=== PATIENT | female | born 1950 | race Caucasian/White ===

== ENCOUNTER 2015-11-23 15:48 | Inpatient (IN) | payer MEDICARE, BC ==
[~2015-11-23] VITALS: Ht 166.4 cm; Wt 67.1 kg
[~2015-11-23 15:48] MED LIST: AMBIEN 10MG10 MG; ASPIRIN 32325 MG/TAB PO; BENEFIBER PO; CELEBREX 200MG200 MG PO; CENTRUM SILVER1 CTB PO; CEPHALEXIN500 M1 PO; CITRACAL + D CA1 TAB; DESYREL 50MG50 MG PO; DITROPAN 5MG TAB5 MG PO; FERROUS SULFATE65 MG PO; FOLIC ACID 11 MG/TA1 PO; FOLIC ACID 40400 MCG PO; GLUCOSAMINE & C1 CA1 PO; IRON325 M1 PO; IRON65 M1 PO; MAG-OX 400400 MG/TAB PO; MIRALAX PA17 GM/Dose PO; MULTI VITAMINS1 TAB PO; NATURE'S BLE1000 MCG PO; NORCO 325 MG-7.1 TAB PO; OXYCONTIN 20MG20 MG; PERCOCET 325 MG1 TA2; SYNTHROID0.05 MG/TA PO; SYNTHROID0.075 MG/T PO; TOPROL XL 50MG50 MG PO; ULTRAM 50MG TAB50 MG PO; VITAMIN C500 MG PO; VITAMIN D 1001000 IU PO; XARELTO10 MG PO
[2016-01-07] MEDS ORDERED: KLOR-CON SPRIN10 MEQ PO (13:45)
[2016-01-09] MEDS ORDERED: CEPHALEXIN500 M1 PO ×2 (13:24→20:32)
[2016-01-09] MEDS ORDERED: DESYREL 50MG50 MG PO (19:43)
[2016-01-09] MEDS ORDERED: SYNTHROID0.075 MG/T PO (19:44)
[2016-01-16] MEDS ORDERED: LANOXIN 0.120.125 MG PO (12:38)
[2016-01-16] MEDS ORDERED: FLORINEF ACETA0.1 MG PO (12:39)
[2016-01-16] MEDS ORDERED: TYLENOL 500MG500 MG PO (12:41)
[2016-03-14] MEDS ORDERED: FERROUS SULFATE65 MG PO (11:21)
[2016-03-14] MEDS ORDERED: FOLIC ACID 40400 MCG PO (11:22)
[2016-03-14] MEDS ORDERED: VITAMIN C500 MG PO (11:22)
[2016-03-14] MEDS ORDERED: MULTI VITAMINS1 TAB PO (11:23)
[2016-03-15] VITALS (12 sets, daily range): BP systolic 91–132; BP diastolic 56–83; PULSE 68–84; TEMP 97.3–98.2
[2016-03-16 05:13] VITALS: BP 107/65; PULSE 74; TEMP 98.2
[2016-03-16] MEDS ORDERED: XARELTO10 MG PO (06:22)
[2016-03-16] MEDS ORDERED: NORCO 325 MG-7.1 TAB PO (06:22)
[2016-03-16] MEDS ORDERED: ULTRAM 50MG TAB50 MG PO (06:23)
[2016-03-16 06:31] LABS: HEMATOCRIT 29.8 % (37.0-47.0); HEMOGLOBIN 9.7 g/dl (12.5-16.0)
[2016-03-16 07:44] VITALS: BP 117/50; PULSE 71; TEMP 96.9
[2016-09-22] MEDS ORDERED: ADIPEX-P37.5 MG PO (10:37)
== END 2016-03-16 11:45 | disposition home or self-care (01) | DRG 483 ==
LOC: JCC 01-05 13:00
PROVIDERS: Orthopaedic Surgery
PROC: 0RPJ0JZ Removal of Synthetic Substitute from Right Shoulder Joint, Open Approach (ICD-10-PCS; 2016-03-15)
PROC: 0RRJ00Z Replacement of Right Shoulder Joint with Reverse Ball and Socket Synthetic Substitute, Open Approach (ICD-10-PCS; principal; 2016-03-15 13:45)
DX: T84.84XA Pain due to internal orthopedic prosthetic devices, implants and grafts, initial encounter (principal); M19.011 Primary osteoarthritis, right shoulder; M75.121 Complete rotator cuff tear or rupture of right shoulder, not specified as traumatic; Z87.891 Personal history of nicotine dependence; Z96.611 Presence of right artificial shoulder joint
CPT/HCPCS: A4315; A9284; C1713; C1776; J0690; J1720; J1885; J2250; J2370; J2405; J2550; J2704; J3010; J7050; J7120

== ENCOUNTER → 2016-03-31 | Outpatient (CLI) | payer MEDICARE, BC ==
[~2016-03-31] VITALS: Ht 166.4 cm; Wt 69.4 kg
[~2016-03-31] MED LIST changes: +ADIPEX-P37.5 MG PO; +ASPI325T6 PO; +FLORINEF ACETA0.1 MG PO; +IRON 65MG PO; +KLOR-CON SPRIN10 MEQ PO; +LANOXIN 0.120.125 MG PO; +PHENERGAN 25 TA25 MG PO; +TYLENOL 500MG500 MG PO
[2016-03-31 10:24] VITALS: BP 105/69; PULSE 75
[2016-03-31 10:48] VITALS: BP 105/69; PULSE 75
[2016-04-18 11:45] VITALS: BP 120/86; PULSE 101
[2016-06-27 12:35] VITALS: BP 132/95; PULSE 90
== END ==
LOC: LIGHT 10:20
DX: E03.9 Hypothyroidism, unspecified (principal); I10 Essential (primary) hypertension; Z68.25 Body mass index [BMI] 25.0-25.9, adult; E66.3 Overweight; G47.33 Obstructive sleep apnea (adult) (pediatric)

== ENCOUNTER 2016-05-18 09:11 | Outpatient (RCR) | payer MEDICARE, BC ==
[~2016-05-18 09:11] MED LIST changes: -ADIPEX-P37.5 MG PO; -ASPI325T6 PO; -IRON 65MG PO; -PHENERGAN 25 TA25 MG PO
[2016-05-31] MEDS ORDERED: ASPI325T6 PO (06:16)
[2016-05-31] MEDS ORDERED: NORCO 325 MG-7.1 TAB PO (06:17)
[2016-09-22] MEDS ORDERED: ADIPEX-P37.5 MG PO (10:37)
== END 2016-06-17 10:26 | disposition home or self-care (01) ==
LOC: WSPT 09:11
DX: Z47.89 Encounter for other orthopedic aftercare (principal)
CPT/HCPCS: G8978-GP; G8979-GP; G8980-GP

== ENCOUNTER 2016-05-24 13:46 | Inpatient (IN) | payer MEDICARE, BC ==
[~2016-05-24] VITALS: Ht 166.4 cm; Wt 69.9 kg
[2016-05-30] VITALS (9 sets, daily range): BP systolic 110–134; BP diastolic 64–87; PULSE 65–73; TEMP 97–98.2
[2016-05-31 00:20] VITALS: BP 101/70; PULSE 71; TEMP 97.8
[2016-05-31 04:25] VITALS: BP 110/69; PULSE 78; TEMP 98
[2016-05-31] MEDS ORDERED: ASPI325T6 PO (06:16)
[2016-05-31] MEDS ORDERED: NORCO 325 MG-7.1 TAB PO (06:17)
[2016-05-31 07:30] VITALS: BP 105/69; PULSE 76; TEMP 98.8
[2016-05-31 08:48] LABS: HEMOGLOBIN 10.6 g/dl (12.5-16.0)
[2016-05-31 08:49] LABS: HEMATOCRIT 33.1 % (37.0-47.0)
[2016-05-31 11:39] VITALS: BP 121/59; PULSE 72; TEMP 98
[2016-09-22] MEDS ORDERED: ADIPEX-P37.5 MG PO (10:37)
== END 2016-05-31 12:50 | disposition home or self-care (01) | DRG 483 ==
LOC: JCC 05-30 07:30
PROVIDERS: Orthopaedic Surgery; Physician Assistant
PROC: 0RRK00Z Replacement of Left Shoulder Joint with Reverse Ball and Socket Synthetic Substitute, Open Approach (ICD-10-PCS; principal; 2016-05-30 13:30)
DX: M19.012 Primary osteoarthritis, left shoulder (principal)
CPT/HCPCS: A4315; A9284; C1713; C1776; J0690; J1100; J1720; J1885; J2250; J2405; J2704; J3010; J7120

== ENCOUNTER → 2016-06-30 | Outpatient (CLI) | payer MEDICARE, BC ==
[~2016-06-30] VITALS: Ht 166.4 cm; Wt 69.9 kg
[~2016-06-30] MED LIST changes: +ADIPEX-P37.5 MG PO; +ASPI325T6 PO; +IRON 65MG PO; +PHENERGAN 25 TA25 MG PO
[2016-06-30 13:43] VITALS: BP 134/93; PULSE 96
[2016-07-25 09:03] VITALS: BP 112/68; PULSE 86
== END ==
LOC: LIGHT 10:00
DX: E03.9 Hypothyroidism, unspecified (principal); I10 Essential (primary) hypertension; E66.9 Obesity, unspecified; Z68.26 Body mass index [BMI] 26.0-26.9, adult; G47.33 Obstructive sleep apnea (adult) (pediatric)

== ENCOUNTER → 2016-09-22 | Outpatient (CLI) | payer MEDICARE, BC ==
[~2016-09-22] VITALS: Ht 166.4 cm; Wt 71.9 kg
[2016-09-22 09:01] VITALS: BP 132/88; PULSE 81
== END ==
LOC: LIGHT 09:00
DX: E03.9 Hypothyroidism, unspecified (principal); I10 Essential (primary) hypertension; E66.9 Obesity, unspecified; Z68.26 Body mass index [BMI] 26.0-26.9, adult; Z71.3 Dietary counseling and surveillance; G47.33 Obstructive sleep apnea (adult) (pediatric)

== ENCOUNTER → 2016-10-27 | Outpatient (CLI) | payer MEDICARE, BC ==
[~2016-10-27] VITALS: Ht 166.4 cm; Wt 72.1 kg
[2016-10-27 14:16] VITALS: BP 130/70; PULSE 72
== END ==
LOC: LIGHT 10:38
DX: E66.9 Obesity, unspecified (principal); E03.9 Hypothyroidism, unspecified; I10 Essential (primary) hypertension; Z68.26 Body mass index [BMI] 26.0-26.9, adult; Z98.84 Bariatric surgery status; Z90.3 Acquired absence of stomach [part of]; Z96.653 Presence of artificial knee joint, bilateral; Z96.641 Presence of right artificial hip joint; Z96.611 Presence of right artificial shoulder joint

== ENCOUNTER 2016-10-31 11:28 | Day surgery (SDC) | payer MEDICARE, BC ==
[~2016-10-31] VITALS: Ht 165.1 cm; Wt 70.9 kg
[~2016-10-31 11:28] MED LIST changes: -IRON 65MG PO; -PHENERGAN 25 TA25 MG PO
[2016-10-31 12:37] VITALS: BP 119/79; PULSE 73; TEMP 97.4
[2016-10-31] MEDS ORDERED: ULTRAM 50MG TAB50 MG PO (12:41)
[2016-10-31] MEDS ORDERED: IRON 65MG PO (12:49)
[2016-10-31] MEDS ORDERED: TYLENOL 500MG500 MG PO (12:52)
[2016-10-31 15:15] VITALS: BP 132/83; PULSE 70; TEMP 97.3
[2016-10-31 15:30] VITALS: BP 153/97; PULSE 70
[2016-10-31 15:45] VITALS: BP 128/82; PULSE 70
[2016-10-31 16:00] VITALS: BP 128/75; PULSE 70
[2016-10-31] MEDS ORDERED: NORCO 325 MG-7.1 TAB PO (16:10)
[2016-10-31] MEDS ORDERED: CEPHALEXIN500 M1 PO (16:10)
[2016-10-31] MEDS ORDERED: PHENERGAN 25 TA25 MG PO (16:11)
[2016-11-24] MEDS ORDERED: ADIPEX-P37.5 MG PO (14:30)
== END 2016-10-31 16:50 | disposition home or self-care (01) ==
LOC: SDCO 11:28
DX: S86.311A Strain of muscle(s) and tendon(s) of peroneal muscle group at lower leg level, right leg, initial encounter (principal); M20.22 Hallux rigidus, left foot; M19.90 Unspecified osteoarthritis, unspecified site; M21.622 Bunionette of left foot; G47.33 Obstructive sleep apnea (adult) (pediatric); Z87.891 Personal history of nicotine dependence; I25.119 Atherosclerotic heart disease of native coronary artery with unspecified angina pectoris; Z95.0 Presence of cardiac pacemaker; R06.02 Shortness of breath; E03.9 Hypothyroidism, unspecified; E27.40 Unspecified adrenocortical insufficiency; Z86.718 Personal history of other venous thrombosis and embolism; Z96.611 Presence of right artificial shoulder joint; Z96.641 Presence of right artificial hip joint; Z86.19 Personal history of other infectious and parasitic diseases; Z80.9 Family history of malignant neoplasm, unspecified; G89.29 Other chronic pain; Z96.653 Presence of artificial knee joint, bilateral
CPT/HCPCS: J1100; J2250; J2405; J2704; J3010; J7120

== ENCOUNTER → 2016-11-24 | Outpatient (CLI) | payer MEDICARE, BC ==
[~2016-11-24] VITALS: Ht 165.2 cm; Wt 69.2 kg
[~2016-11-24] MED LIST changes: +IRON 65MG PO; +PHENERGAN 25 TA25 MG PO
[2016-11-24 14:31] VITALS: BP 124/78; PULSE 68
== END ==
LOC: LIGHT 10:07
DX: E03.9 Hypothyroidism, unspecified (principal); I10 Essential (primary) hypertension; E66.9 Obesity, unspecified; Z68.25 Body mass index [BMI] 25.0-25.9, adult; Z71.3 Dietary counseling and surveillance; G47.33 Obstructive sleep apnea (adult) (pediatric)

== ENCOUNTER → 2016-12-22 | Outpatient (CLI) | payer MEDICARE, BC ==
[~2016-12-22] VITALS: Ht 163.8 cm; Wt 69.4 kg
[2016-12-22 14:44] VITALS: BP 142/90; PULSE 96
== END ==
LOC: LIGHT 10:01
DX: E03.9 Hypothyroidism, unspecified (principal); I10 Essential (primary) hypertension; E66.9 Obesity, unspecified; Z68.25 Body mass index [BMI] 25.0-25.9, adult; Z71.3 Dietary counseling and surveillance; G47.33 Obstructive sleep apnea (adult) (pediatric)

== ENCOUNTER → 2017-04-06 | Outpatient (CLI) | payer MEDICARE, BC ==
[~2017-04-06] VITALS: Ht 163.8 cm; Wt 69.4 kg
[2017-04-06 10:55] VITALS: BP 138/90; PULSE 80
== END ==
LOC: LIGHT 03-09 09:28
DX: E03.9 Hypothyroidism, unspecified (principal); I10 Essential (primary) hypertension; E66.9 Obesity, unspecified; Z68.25 Body mass index [BMI] 25.0-25.9, adult; Z71.3 Dietary counseling and surveillance; G47.33 Obstructive sleep apnea (adult) (pediatric)
CPT/HCPCS: G0463

== ENCOUNTER 2017-07-04 09:48 | Outpatient (RCR) | payer MEDICARE, BC | END 2017-08-02 09:05 | disposition home or self-care (01) | LOC: WSPT 09:48 | DX: R22.42 Localized swelling, mass and lump, left lower limb (principal); Z86.79 Personal history of other diseases of the circulatory system | CPT/HCPCS: G8987-GP; G8988-GP ==

== ENCOUNTER 2017-08-01 08:02 | Day surgery (SDC) | payer MEDICARE, BC ==
[~2017-08-01] VITALS: Ht 162.6 cm; Wt 70.4 kg
[2017-08-01] VITALS (7 sets, daily range): BP systolic 120–137; BP diastolic 78–104; PULSE 71–77; TEMP 97.6–97.7
== END 2017-08-01 11:20 | disposition home or self-care (01) ==
LOC: SDCO 08:02
DX: Z12.11 Encounter for screening for malignant neoplasm of colon (principal); K64.0 First degree hemorrhoids; K63.89 Other specified diseases of intestine; I25.119 Atherosclerotic heart disease of native coronary artery with unspecified angina pectoris; G47.33 Obstructive sleep apnea (adult) (pediatric); Z95.0 Presence of cardiac pacemaker; Z86.718 Personal history of other venous thrombosis and embolism; E03.9 Hypothyroidism, unspecified; Z98.84 Bariatric surgery status
CPT/HCPCS: OP; J2704; J7120

== ENCOUNTER 2017-09-03 09:35 | Emergency (ER) | payer MEDICARE, BC ==
[~2017-09-03] VITALS: Ht 165.1 cm; Wt 70.9 kg
[2017-09-03 09:38] VITALS: TEMP 98.3
[2017-09-03 10:11] LABS: BASO # 0.1 (0.0-0.2); BASO % 0.8 % (0.0-2.0); EOS # 0.1 (0.0-0.7); EOS % 1.7 % (0-4.0); GRAN # 4.3 (1.4-6.5); GRAN % 71.2 % (42.2-75.2); HEMATOCRIT 37.3 % (37.0-47.0); HEMOGLOBIN 12.1 g/dl (12.5-16.0); LYMPH # 1.1 (1.2-3.4); LYMPH % 18.2 % (20.0-51.0); MEAN CELL VOLUME 98 fl (80.0-100.0); MEAN CORPUSCULAR HEMOGLOBIN 32 pg (27.0-31.0); MEAN CORPUSCULAR HGB CONC 32 g/dl (33.0-37.0); MEAN PLATELET VOLUME 9.8 fl (7.4-10.4); MONO # 0.5 (0.1-0.6); MONO % 7.8 % (1.7-9.3); PLATELET COUNT 258 K/mm3 (130-400); RED BLOOD COUNT 3.79 M/mm3 (4.10-5.30); REDCELL DISTRIBUTION WIDTH-CV 12.7 % (11.5-14.5)
[2017-09-03 10:22] LABS: ALBUMIN 4.1 gm/dL (3.5-5.0); BILIRUBIN,TOTAL 0.3 mg/dL (0.0-1.0); C-REACTIVE PROTEIN 0.6 mg/dL (0.0-0.9); CALCIUM 9.2 mg/dL (8.4-10.2); CREATININE, serum 0.75 mg/dL (0.52-1.25); TOTAL PROTEIN 7.5 gm/dL (6.4-8.2)
[2017-09-03 11:27] LABS: COLLECTION METHOD CLEAN CATCH
[2017-09-03 11:42] LABS: MUCOUS Present /lpf; PH 5 (5-8); SQUAMOUS EPITHELIAL None Seen /hpf; URINE APPEARANCE Clear; URINE BACTERIA None Seen /hpf; URINE BILIRUBIN Negative (NEGATIVE); URINE BLOOD Negative (NEGATIVE); URINE COLOR Yellow; URINE GLUCOSE Negative (NEGATIVE); URINE KETONE Negative (NEGATIVE); URINE LEUKOCYTE ESTERASE Negative (NEGATIVE); URINE NITRATE Negative (NEGATIVE); URINE PROTEIN(semi-quant) Negative (NEGATIVE); URINE RBC 0-2 /hpf; URINE UROBILINOGEN Negative (NEGATIVE)
[2017-09-03] MEDS ORDERED: ZOFRAN ODT4 MG PO (13:53)
[2017-09-03 14:33] VITALS: BP 132/88; PULSE 79
== END 2017-09-03 14:37 | disposition home or self-care (01) ==
LOC: COL.ER 09:35
PROVIDERS: Physician Assistant
DX: K56.7 Ileus, unspecified (principal); E03.9 Hypothyroidism, unspecified; Z95.0 Presence of cardiac pacemaker
CPT/HCPCS: J1170; J1885; J2405; J7030; Q9967

== ENCOUNTER → 2017-09-13 | Outpatient (CLI) | payer MEDICARE, BC ==
[~2017-09-13] MED LIST changes: +ZOFRAN ODT4 MG PO
== END ==
LOC: COL.RAD 10:13
DX: R14.0 Abdominal distension (gaseous) (principal); Z96.641 Presence of right artificial hip joint

== ENCOUNTER → 2017-09-21 | Outpatient (CLI) | payer MEDICARE, BC ==
[~2017-09-21] VITALS: Ht 165.1 cm; Wt 72.8 kg
[~2017-09-21] MED LIST changes: +TOPAMAX 25MG25 M1 PO
[2017-09-21 09:57] VITALS: BP 124/80; PULSE 96
== END ==
LOC: LIGHT 09:43
DX: E03.9 Hypothyroidism, unspecified (principal); I10 Essential (primary) hypertension; G47.33 Obstructive sleep apnea (adult) (pediatric); E66.9 Obesity, unspecified; Z68.27 Body mass index [BMI] 27.0-27.9, adult; Z71.3 Dietary counseling and surveillance
CPT/HCPCS: G0463

== ENCOUNTER → 2017-10-26 | Outpatient (CLI) | payer MEDICARE, BC ==
[~2017-10-26] VITALS: Ht 163.8 cm; Wt 72.6 kg
[~2017-10-26] MED LIST changes: -TOPAMAX 25MG25 M1 PO; +TOPAMAX50 MG PO
[2017-10-26 15:56] VITALS: BP 150/90; PULSE 84
== END ==
LOC: LIGHT 15:46
DX: E03.9 Hypothyroidism, unspecified (principal); I10 Essential (primary) hypertension; G47.33 Obstructive sleep apnea (adult) (pediatric); E66.9 Obesity, unspecified; Z68.26 Body mass index [BMI] 26.0-26.9, adult; Z71.3 Dietary counseling and surveillance
CPT/HCPCS: G0463

== ENCOUNTER → 2017-12-07 | Outpatient (CLI) | payer MEDICARE, BC ==
[~2017-12-07] VITALS: Ht 163.8 cm; Wt 72.8 kg
[2017-12-07 16:35] VITALS: BP 120/60; PULSE 68
== END ==
LOC: LIGHT 11:51
DX: E03.9 Hypothyroidism, unspecified (principal); I10 Essential (primary) hypertension; G47.33 Obstructive sleep apnea (adult) (pediatric); E66.9 Obesity, unspecified; Z68.27 Body mass index [BMI] 27.0-27.9, adult; Z71.3 Dietary counseling and surveillance
CPT/HCPCS: G0463

== ENCOUNTER → 2018-02-03 | Outpatient (CLI) | payer MEDICARE, BC | LOC: MC.RAD 08:40 | DX: Z12.31 Encounter for screening mammogram for malignant neoplasm of breast (principal); N63.21 Unspecified lump in the left breast, upper outer quadrant; Z95.0 Presence of cardiac pacemaker ==

== ENCOUNTER → 2018-02-08 | Outpatient (CLI) | payer MEDICARE, BC ==
[~2018-02-08] VITALS: Ht 163.8 cm; Wt 75.1 kg
[2018-02-08 16:05] VITALS: BP 132/80; PULSE 80
== END ==
LOC: LIGHT 11:33
DX: Z12.31 Encounter for screening mammogram for malignant neoplasm of breast (principal); E03.9 Hypothyroidism, unspecified; I10 Essential (primary) hypertension; G47.33 Obstructive sleep apnea (adult) (pediatric); E66.9 Obesity, unspecified; Z68.28 Body mass index [BMI] 28.0-28.9, adult; Z71.3 Dietary counseling and surveillance
CPT/HCPCS: G0463

== ENCOUNTER → 2018-02-15 | Outpatient (CLI) | payer MEDICARE, BC | LOC: MC.RAD 14:00 | DX: N64.89 Other specified disorders of breast (principal) ==

== ENCOUNTER → 2018-03-22 | Outpatient (CLI) | payer MEDICARE, BC ==
[~2018-03-22] VITALS: Ht 163.8 cm; Wt 75.1 kg
[2018-03-22 14:31] VITALS: BP 128/74; PULSE 76
== END ==
LOC: LIGHT 09:19
DX: E03.9 Hypothyroidism, unspecified (principal); I10 Essential (primary) hypertension; G47.33 Obstructive sleep apnea (adult) (pediatric); Z68.28 Body mass index [BMI] 28.0-28.9, adult; Z71.3 Dietary counseling and surveillance; E66.9 Obesity, unspecified
CPT/HCPCS: G0463

== ENCOUNTER → 2018-04-26 | Outpatient (CLI) | payer MEDICARE, BC ==
[~2018-04-26] VITALS: Ht 163.8 cm; Wt 74.8 kg
[2018-04-26 14:38] VITALS: BP 132/88; PULSE 72
== END ==
LOC: LIGHT 12:52
DX: E03.9 Hypothyroidism, unspecified (principal); I10 Essential (primary) hypertension; G47.33 Obstructive sleep apnea (adult) (pediatric); E66.9 Obesity, unspecified; Z68.27 Body mass index [BMI] 27.0-27.9, adult; Z71.3 Dietary counseling and surveillance
CPT/HCPCS: G0463

== ENCOUNTER → 2018-05-31 | Outpatient (CLI) | payer MEDICARE, BC ==
[~2018-05-31] VITALS: Ht 163.8 cm; Wt 72.8 kg
[2018-05-31 14:34] VITALS: BP 116/66; PULSE 64
== END ==
LOC: LIGHT 10:51
DX: E03.9 Hypothyroidism, unspecified (principal); I10 Essential (primary) hypertension; G47.33 Obstructive sleep apnea (adult) (pediatric); E66.9 Obesity, unspecified; Z68.27 Body mass index [BMI] 27.0-27.9, adult; Z71.3 Dietary counseling and surveillance
CPT/HCPCS: G0463

== ENCOUNTER → 2018-07-26 | Outpatient (CLI) | payer MEDICARE, BC ==
[~2018-07-26] VITALS: Ht 163.8 cm; Wt 72.1 kg
[2018-07-26 14:37] VITALS: BP 118/80; PULSE 76
== END ==
LOC: LIGHT 14:22
DX: E03.9 Hypothyroidism, unspecified (principal); I10 Essential (primary) hypertension; G47.33 Obstructive sleep apnea (adult) (pediatric); E66.9 Obesity, unspecified; Z68.26 Body mass index [BMI] 26.0-26.9, adult; Z71.3 Dietary counseling and surveillance
CPT/HCPCS: G0463

== ENCOUNTER → 2018-08-30 | Outpatient (CLI) | payer MEDICARE, BC ==
[~2018-08-30] VITALS: Ht 163.8 cm; Wt 74.4 kg
[~2018-08-30] MED LIST changes: +TOPROL XL 25MG25 MG PO
[2018-08-30 14:55] VITALS: BP 108/56; PULSE 84
== END ==
LOC: LIGHT 13:30
DX: E03.9 Hypothyroidism, unspecified (principal); I10 Essential (primary) hypertension; G47.33 Obstructive sleep apnea (adult) (pediatric); E66.9 Obesity, unspecified; Z68.27 Body mass index [BMI] 27.0-27.9, adult; Z71.3 Dietary counseling and surveillance
CPT/HCPCS: G0463

== ENCOUNTER → 2018-11-08 | Outpatient (CLI) | payer MEDICARE, BC ==
[~2018-11-08] VITALS: Ht 163.8 cm; Wt 75.5 kg
[2018-11-08 15:21] VITALS: BP 126/74; PULSE 82
== END ==
LOC: LIGHT 10-11 14:35
DX: E03.9 Hypothyroidism, unspecified (principal); I10 Essential (primary) hypertension; G47.33 Obstructive sleep apnea (adult) (pediatric); E66.9 Obesity, unspecified; Z68.28 Body mass index [BMI] 28.0-28.9, adult; Z71.3 Dietary counseling and surveillance
CPT/HCPCS: G0463

== ENCOUNTER → 2018-12-06 | Outpatient (CLI) | payer MEDICARE, BC ==
[~2018-12-06] VITALS: Ht 163.8 cm; Wt 75.1 kg
[2018-12-06 14:52] VITALS: BP 136/80; PULSE 106
== END ==
LOC: LIGHT 14:16
DX: E03.9 Hypothyroidism, unspecified (principal); I10 Essential (primary) hypertension; G47.33 Obstructive sleep apnea (adult) (pediatric); E66.9 Obesity, unspecified; Z68.28 Body mass index [BMI] 28.0-28.9, adult; Z71.3 Dietary counseling and surveillance
CPT/HCPCS: G0463

== ENCOUNTER → 2019-01-17 | Outpatient (CLI) | payer MEDICARE, BC ==
[~2019-01-17] VITALS: Ht 163.8 cm; Wt 77.6 kg
[~2019-01-17] MED LIST changes: +CONTRAVE1 TER
[2019-01-17 14:49] VITALS: BP 110/64; PULSE 84
== END ==
LOC: LIGHT 14:27
DX: E03.9 Hypothyroidism, unspecified (principal); I10 Essential (primary) hypertension; G47.33 Obstructive sleep apnea (adult) (pediatric); E66.9 Obesity, unspecified; Z68.28 Body mass index [BMI] 28.0-28.9, adult; Z71.3 Dietary counseling and surveillance
CPT/HCPCS: G0463

== ENCOUNTER → 2019-12-04 | Outpatient (CLI) | payer MEDICARE, BC ==
[~2019-12-04] MED LIST changes: +BETAPACE 120MG120 MG PO; +LEXAPRO 10MG10 MG PO
== END ==
LOC: COL.RAD 11:22
DX: D35.02 Benign neoplasm of left adrenal gland (principal); K80.20 Calculus of gallbladder without cholecystitis without obstruction
CPT/HCPCS: Q9967

== ENCOUNTER → 2019-12-25 | Outpatient (CLI) | payer MEDICARE, BC | LOC: COL.PUL 10:22 | DX: R06.00 Dyspnea, unspecified (principal) ==

== ENCOUNTER → 2020-02-21 | Outpatient (CLI) | payer MEDICARE, BC ==
[~2020-02-21] MED LIST changes: +ALDACTONE 25MG25 M1 PO; +AMBIEN 5MG TABLE5 MG PO; +SYNTHROID0.075 MG/T
== END ==
LOC: COL.PUL 12:14
DX: R06.00 Dyspnea, unspecified (principal)

== ENCOUNTER → 2020-02-24 | Outpatient (CLI) | payer MEDICARE, BC | LOC: COL.PUL 07:26 | DX: R06.00 Dyspnea, unspecified (principal); R06.02 Shortness of breath | CPT/HCPCS: J7674 ==

== ENCOUNTER → 2020-05-05 | Outpatient (CLI) | payer MEDICARE, BC | LOC: MC.RAD 10:49 | DX: Z12.31 Encounter for screening mammogram for malignant neoplasm of breast (principal); Z95.0 Presence of cardiac pacemaker ==

== ENCOUNTER → 2021-10-22 | Outpatient (CLI) | payer MEDICARE, BC | LOC: MC.RAD 08:23 | DX: Z12.31 Encounter for screening mammogram for malignant neoplasm of breast (principal) ==